=== PATIENT | female | born 1940 | race Caucasian/White ===

== ENCOUNTER 2016-10-19 09:07 | Emergency (ER) | payer MEDICARE, OTHER ==
[~2016-10-19] VITALS: Ht 154.9 cm; Wt 52.0 kg
[~2016-10-19 09:07] MED LIST: HYDR-2768 PO; LEVO.05 PO; LORA-474 PO; PERC10TA27 PO; POTA20IN3 PO
[2016-10-19 09:09] VITALS: BP 175/80; PULSE 85; RESP 18; TEMP 98.6; O2SAT 94
[2016-10-19] MEDS ORDERED: SODIUM CHLORIDE 0.9% FLUSH 10 ML FLUSH IVF PRN (09:30)
--- NOTE | 2016-10-19 09:34 | PD ---
HPI Chief Complaint: Fall Time Seen by Provider: 09:33 Travel History International Travel<30 days: No Contact w/Intl Traveler<30days: No Traveled to known affect area: No History of Present Illness HPI 75-year-old female with a chin with history of esophageal cancer currently on treatment with [facility] and gets follow-up locally with Dr. Graham, presents to the ER today because she states that she has been dizzy for the past week, and last night was on the couch, got up and got dizzy and she does not remember what happened but ended up on the floor. She has a abrasion over her right brow area. She states she had a loss of consciousness. She is also complaining of right shoulder pains. She denies any chest pains, shortness of breath, vomiting, or other symptoms. Modifying Factors: None Associated Signs & Symptoms: Dizziness, questionable syncope, right shoulder injury, head injury Risk Factors: Elderly, esophageal cancer PFSH Past Medical History Arthritis: Yes Anxiety: Yes Depression: Yes Chemotherapy: Yes (ESOPHAGEAL CA- LAST MONTH) Diminished Hearing: No GERD: Yes Hypertension: Yes Psychiatric: Yes ("MANIC-DEPRESSIVE") Thyroid Disease: Yes (LESION ON THYROID) Past Surgical History Cholecystectomy: Yes Endocrine Surgery: Yes (THYROID) Hysterectomy: Yes Social History Alcohol Use: Yes (SOCIAL DRINKER) Tobacco Use: Yes Substance Use: No Allergies-Medications (Allergen,Severity, Reaction): Coded Allergies: No Known Allergies (Unverified , 11/07/13) Reported Meds & Prescriptions Reported Meds & Active Scripts Active Potassium Chloride Er (Potassium Chloride) 20 Meq Tab 20 Meq PO BID 3 Days Reported Percocet 10/325 (Oxycodone/Acetaminophen) Oxycodone 10/325 Acetaminophen Tab 1 Tab PO Q6H Hctz (Hydrochlorothiazide) 25 Mg Tab 25 Mg PO DAILY Synthroid (Levothyroxine Sodium) 50 Mcg Tab 50 Mcg PO DAILY Ativan (Lorazepam) 1 Mg Tab 1 Mg PO QID Review of Systems Except as stated in HPI: all other systems reviewed are Neg Physical Exam Narrative GENERAL: Well-developed elderly white female patient currently in moderate distress. Awake and oriented 3. SKIN: Focused skin assessment warm/dry. HEAD: Small shallow 1 cm laceration over the right eyebrow. Normocephalic. EYES: Pupils equal and round. No scleral icterus. No injection or drainage. ENT: No nasal bleeding or discharge. Mucous membranes pink and moist. NECK: Trachea midline. No JVD. CARDIOVASCULAR: Regular rate and rhythm. No murmur appreciated. RESPIRATORY: No accessory muscle use. Clear to auscultation. Breath sounds equal bilaterally. GASTROINTESTINAL: Abdomen soft, non-tender, nondistended. Hepatic and splenic margins not palpable. MUSCULOSKELETAL: No obvious deformities. No clubbing. No cyanosis. No edema. EXTREMITIES: No clubbing, cyanosis, or edema. There is notable ecchymosis and tenderness over the palpation of the right shoulder area, proximal humeral area with no obvious deformities. NEUROLOGICAL: Awake and alert. No obvious cranial nerve deficits. Motor grossly within normal limits. Normal speech. Normal Romberg. PSYCHIATRIC: Appropriate mood and affect; insight and judgment normal. Data Data Last Documented VS Vital Signs Date Time Temp Pulse Resp B/P Pulse Ox O2 Delivery O2 Flow Rate FiO2 10/19/16 09:46 18 10/19/16 09:46 Room Air 10/19/16 09:09 98.6 85 175/80 94 Orders Electrocardiogram (10/19/16 09:24) Complete Blood Count With Diff (10/19/16 09:24) Comprehensive Metabolic Panel (10/19/16 09:24) Magnesium (Mg) (10/19/16:24) Ckmb (Isoenzyme) Profile (10/19/16:24) Troponin I (10/19/16 09:24) Act Partial Throm Time (Ptt) (10/19/16 09:24) Prothrombin Time / Inr (Pt) (10/19/16:24) Urinalysis - C+S If Indicated (10/19/16:24) Chest, Single Ap (10/19/16:24) Ct Brain W/O Iv Contrast(Rout) (10/19/16 09:24) Ecg Monitoring (10/19/16:24) Iv Access Insert/Monitor (10/19/16:24) Oximetry (10/19/16 09:24) Sodium Chloride 0.9% Flush (Ns Flush) (10/19/16 09:30) Humerus (Min 2vws) (10/19/16 09:57) Shoulder, Complete (>2vws) (10/19/16 09:57) Ct Cerv Spine W/O Contrast (10/19/16 10:22) Ct Facial Bones W/O Iv Cont (10/19/16 10:22) Acetamin-Hydrocod 325-5 Mg (Terry 5-325 (10/19/16 12:15) Labs Laboratory Tests Test 10/19/16 09:40 White Blood Count 6.9 TH/MM3 Red Blood Count 3.52 MIL/MM3 Hemoglobin 11.2 GM/DL Hematocrit 33.7 % Mean Corpuscular Volume 95.9 FL Mean Corpuscular Hemoglobin 31.9 PG Mean Corpuscular Hemoglobin 33.3 % Concent Red Cell Distribution Width 14.2 % Platelet Count 225 TH/MM3 Mean Platelet Volume 7.4 FL Neutrophils (%) (Auto) 76.9 % Lymphocytes (%) (Auto) 15.6 % Monocytes (%) (Auto) 6.2 % Eosinophils (%) (Auto) 0.9 % Basophils (%) (Auto) 0.4 % Neutrophils # (Auto) 5.3 TH/MM3 Lymphocytes # (Auto) 1.1 TH/MM3 Monocytes # (Auto) 0.4 TH/MM3 Eosinophils # (Auto) 0.1 TH/MM3 Basophils # (Auto) 0.0 TH/MM3 CBC Comment DIFF FINAL Differential Comment Prothrombin Time 10.4 SEC Prothromb Time International 0.9 RATIO Ratio Activated Partial 27.4 SEC Thromboplast Time Urine Color YELLOW Urine Turbidity CLEAR Urine pH 7.0 Urine Specific Beverly 1.011 Urine Protein NEG mg/dL Urine Glucose (UA) NEG mg/dL Urine Ketones NEG mg/dL Urine Occult Blood TRACE Urine Nitrite NEG Urine Bilirubin NEG Urine Urobilinogen LESS THAN 2.0 MG/DL Urine Leukocyte Esterase NEG Urine RBC 2 /hpf Urine WBC 1 /hpf Urine Squamous Epithelial <1 /hpf Cells Urine Bacteria RARE /hpf Urine Mucus FEW /lpf Microscopic Urinalysis Comment CULT NOT INDICATED Sodium Level 140 MEQ/L Potassium Level 4.4 MEQ/L Chloride Level 106 MEQ/L Carbon Dioxide Level 28.2 MEQ/L Anion Gap 6 MEQ/L Blood Urea Nitrogen 8 MG/DL Creatinine 0.58 MG/DL Estimat Glomerular Filtration 102 ML/MIN Rate Random Glucose 89 MG/DL Calcium Level 8.3 MG/DL Magnesium Level 1.9 MG/DL Total Bilirubin 0.3 MG/DL Aspartate Amino Transf 27 U/L (AST/SGOT) Alanine Aminotransferase 35 U/L (ALT/SGPT) Alkaline Phosphatase 83 U/L Total Creatine Kinase 89 U/L Troponin I LESS THAN 0.02 NG/ML Total Protein 7.1 GM/DL Albumin 3.2 GM/DL MDM Medical Decision Making Medical Screen Exam Complete: Yes Emergency Medical Condition: Yes Medical Record Reviewed: Yes Interpretation(s) EKG shows NSR, no ST elevation or depression, and no arrhythmias. No significant T-wave inversions. Laboratory Tests Test 10/19/16 09:40 Red Blood Count 3.52 MIL/MM3 (4.00-5.30) Hemoglobin 11.2 GM/DL (11.6-15.3) Hematocrit 33.7 % (35.0-46.0) Neutrophils (%) (Auto) 76.9 % (16.0-70.0) Urine Occult Blood TRACE (NEG) Urine Bacteria RARE /hpf (NONE) Urine Mucus FEW /lpf (OCC) Calcium Level 8.3 MG/DL (8.5-10.1) Troponin I LESS THAN 0.02 NG/ML (0.02-0.05) Albumin 3.2 GM/DL (3.4-5.0) Last [address] 10/19/16 1022 Signed Impressions: Service Date/Time: Wednesday, October 19, 2016 10:25 - CONCLUSION: 1. No acute bony fracture identified. Berry Bennett MD Shoulder X-Ray 10/19/16956 Signed Impressions: Service Date/Time: Wednesday, October 19, 2016 10:53 - CONCLUSION: Osteoarthritis without acute abnormality. Dirk Good Jr., MD Humerus X-Ray 10/19/16956 Signed Impressions: Service Date/Time: Wednesday, October 19, 2016 10:50 - CONCLUSION: Unremarkable examination of the right humerus. Dirk Good Jr., MD Head CT 10/19/16923 Signed Impressions: Service Date/Time: Wednesday, October 19, 2016 10:22 - CONCLUSION: 1. No acute intracranial abnormality identified. Berry Bennett MD Chest X-Ray 10/19/16923 Signed Impressions: Service Date/Time: Wednesday, October 19, 2016 09:31 - CONCLUSION: 1. COPD changes. Berry Bennett MD Differential Diagnosis Fall, questionable syncope, dizziness, right humeral injury, head injuryrule out acute intracranial bleed versus fractures versus dehydration versus metabolic issues Narrative Course CAT scans and x-rays did not reveal any signs of acute injuries. Lab work did not indicate significant dehydration or metabolic issues. Vital signs are stable in the ER. Patient has no significant focal neurological deficits. She is able to do a Romberg. At this point, I have talked her regarding her symptoms and I do suspect she will need further evaluation for this dizziness. Symptoms are more indicative of vertigo. I do not see any other focal symptoms. At this point, I have discussed admission for further inpatient evaluation of her dizziness but patient is declining stating that she would rather be home. My plan at this point would be to release her with close follow -up to primary care physician. Return for any worsening in symptoms as needed. The plan has discussed with her and she states understanding. Diagnosis Primary Impression: Dizziness Additional Impressions: Syncope Multiple contusions Med/Other Pt SpecificInfo: Prescription(s) given Scripts Meclizine 25 Mg Tab25 Mg PO DIRECTED PRN (VERTIGO) #20 TAB Ref 0 Prov:Jim Rosario MD 10/19/16 Disposition: 01 DISCHARGE HOME Condition: Stable Jim Rosario MD Oct 19, 2016 09:34
[2016-10-19 09:46] VITALS: RESP 18
--- NOTE | 2016-10-19 09:47 | RADRPT ---
EXAM DATE/TIME: 10/19/2016 09:31 [facility] COMPARISON: No previous studies available for comparison. INDICATIONS : Shortness of breath. MEDICAL HISTORY : Carcinoma, esophageal. SURGICAL HISTORY : Infusaport ENCOUNTER: Initial ACUITY: 1 day PAIN SCORE: 0/10 LOCATION: Bilateral chest FINDINGS: The Phugvz-d-Ohap in good position. The heart is mildly enlarged. The lungs demonstrate COPD changes. No suspicious lesions are identifie d. The osseous structures demonstrate degenerative changes within the shoulders bilaterally and rotatory scoliosis of the thoracic spine. CONCLUSION: 1. COPD changes. Berry Bennett MD on October 19, 2016 at 9:45 Board Certified Radiologist. This report was verified electronically.
[2016-10-19 10:08] LABS: AUTOMATED NEUTROPHIL # 5.3 TH/MM3 (1.8-7.7); BASOPHIL % 0.4 % (0.0-2.0); EOSINOPHIL # 0.1 TH/MM3 (0-0.4); EOSINOPHIL % 0.9 % (0.0-4.0); HEMATOCRIT 33.7 % (35.0-46.0); HEMO FLAGS DIFF FINAL; LYMPH % 15.6 % (9.0-44.0); LYMPHOCYTE # 1.1 TH/MM3 (1.0-4.8); MEAN CELL VOLUME 95.9 FL (80.0-100.0); MEAN CORPUSCULAR HEMOGLOBIN 31.9 PG (27.0-34.0); MEAN CORPUSCULAR HGB CONC 33.3 % (32.0-36.0); MONO % 6.2 % (0.0-8.0); NEUT % 76.9 % (16.0-70.0); PLATELET COUNT 225 TH/MM3 (150-450); RED BLOOD COUNT 3.52 MIL/MM3 (4.00-5.30); RED CELL DISTRIBUTION WIDTH 14.2 % (11.6-17.2); WHITE BLOOD COUNT 6.9 TH/MM3 (4.0-11.0)
[2016-10-19 10:12] LABS: BACTERIA, URINE RARE /hpf; BLOOD, URINE TRACE (NEG); COMMENT (UR) CULT NOT INDICATED; CULTURE IF INDICATED CULT NOT INDICATED; GLUCOSE,URINE NEG (NEG); KETONE, URINE NEG (NEG); MUCUS URINE FEW /lpf (OCC); NITRITE,URINE NEG (NEG); SQUAMOUS EPITHELIAL CELL URINE <1 /hpf (0-5); URINE COLOR YELLOW (YELLW/STRAW)
[2016-10-19 10:20] LABS: APTT (PATIENT) 27.4 SEC (24.3-30.1); INTERNATIONAL NORMALIZED RATIO 0.9 RATIO; PROTHROMBIN TIME - PATIENT 10.4 SEC (9.8-11.6)
[2016-10-19 10:27] LABS: ALT (GPT) 35 U/L (10-53); ANION GAP 6 MEQ/L (5-15); AST (GOT) 27 U/L (15-37); BICARBONATE 28.2 MEQ/L (21.0-32.0); BLOOD UREA NITROGEN 8 MG/DL (7-18); CHLORIDE 106 MEQ/L (98-107); GLOMERULAR FILTRATION RATE 102 ML/MIN (>89); MAGNESIUM 1.9 MG/DL (1.5-2.5); POTASSIUM 4.4 MEQ/L (3.5-5.1); SODIUM (NA) 140 MEQ/L (136-145)
[2016-10-19 10:31] LABS: ALKALINE PHOSPHATASE 83 U/L (45-117); TOTAL BILIRUBIN ADULT 0.3 MG/DL (0.2-1.0)
[2016-10-19 10:36] LABS: CREATINE KINASE 89 U/L (26-192)
--- NOTE | 2016-10-19 10:42 | RADRPT ---
EXAM DATE/TIME: 10/19/2016 10:22 [facility] COMPARISON: No previous studies available for comparison. INDICATIONS : Fall, hit right side of head. RADIATION DOSE: 56.35 CTDIvol (mGy) MEDICAL HISTORY : Hypertension. Carcinoma, esophageal. SURGICAL HISTORY : None. ENCOUNTER: Initial ACUITY: 1 day PAIN SCALE: 5/10 LOCATION: Right temporal TECHNIQUE: Multiple contiguous axial images were obtained of the head. Using automated exposure control and adj ustment of the mA and/or kV according to patient size, radiation dose was kept as low as reasonably a chievable to obtain optimal diagnostic quality images. FINDINGS: CEREBRUM: The ventricles are normal for age. No evidence of midline shift, mass lesion, hemorrhage or acute in farction. No extra-axial fluid collections are seen. POSTERIOR FOSSA: The cerebellum and brainstem are intact. The 4th ventricle is midline. The cerebellopontine angle i s unremarkable. EXTRACRANIAL: The visualized portion of the orbits is intact. SKULL: The calvaria is intact. No evidence of skull fracture. CONCLUSION: 1. No acute intracranial abnormality identified. Berry Bennett MD on October 19, 2016 at 10:36 Board Certified Radiologist. This report was verified electronically.
--- NOTE | 2016-10-19 11:13 | RADRPT ---
EXAM DATE/TIME: 10/19/2016 10:25 [facility] COMPARISON: CT BRAIN W/O CONTRAST, October 19, 2016, 10:22. INDICATIONS : Fall; hit right side of head. RADIATION DOSE: 36.82 CTDIvol (mGy) MEDICAL HISTORY : Carcinoma, esophageal. Hypertension. SURGICAL HISTORY : None. ENCOUNTER: Initial ACUITY: 1 day PAIN SCORE: 5/10 LOCATION: facial TECHNIQUE: Volumetric scanning of the facial bones was performed. Using automated exposure control and adjustme nt of the mA and/or kV according to patient size, radiation dose was kept as low as reasonably achiev able to obtain optimal diagnostic quality images. FINDINGS: ORBITS: The orbital and infraorbital osseous structures are intact. The retroconal structures have a normal configuration. No radiopaque foreign bodies are seen. NASAL BONE: The nasal bone and maxillary spine are intact ZYGOMATIC ARCHES: Symmetric without evidence of fracture. SINUSES: The maxillary, ethmoid and frontal sinuses are intact. No air-fluid levels seen. NASAL CAVITY: The nasal septum is intact and midline. The lacrimal ducts are intact. SOFT TISSUES: No radiopaque foreign bodies seen. There is a small amount of swelling and a small laceration ad jacent to the right orbit. INTRACRANIAL: No intracranial air seen. CRIBIFORM PLATE: Grossly intact. CONCLUSION: 1. No acute bony fracture identified. Berry Bennett MD on October 19, 2016 at 11:06 Board Certified Radiologist. This report was verified electronically.
--- NOTE | 2016-10-19 11:23 | RADRPT ---
EXAM DATE/TIME: 10/19/2016 10:50 [facility] COMPARISON: No previous studies available for comparison. INDICATIONS : Fall - right arm pain. MEDICAL HISTORY : Arthritis. SURGICAL HISTORY : None. ENCOUNTER: Initial ACUITY: 1 day PAIN SCORE: 10/10 LOCATION: Right proximal humerus FINDINGS: Two view examination of the right humerus demonstrates no evidence of fracture or dislocation. Bony mineralization is normal. The soft tissue structures are intact. CONCLUSION: Unremarkable examination of the right humerus. Dirk Good Jr., MD on October 19, 2016 at 11:13 Board Certified Radiologist. This report was verified electronically.
--- NOTE | 2016-10-19 11:24 | RADRPT ---
EXAM DATE/TIME: 10/19/2016 10:53 [facility] COMPARISON: No previous studies available for comparison. INDICATIONS : Fall - right shoulder pain. MEDICAL HISTORY : Arthritis. SURGICAL HISTORY : None. ENCOUNTER: Initial ACUITY: 1 day PAIN SCORE: 10/10 LOCATION: Right shoulder FINDINGS: 5 views of the right shoulder show joint space narrowing with mild osteophyte production. No fracture or dislocation. Acromioclavicular joint is unremarkable. Soft tissues are unremarkable. A port overl ies the right chest. CONCLUSION: Osteoarthritis without acute abnormality. Dirk Good Jr., MD on October 19, 2016 at 11:21 Board Certified Radiologist. This report was verified electronically.
--- NOTE | 2016-10-19 12:03 | RADRPT ---
EXAM DATE/TIME: 10/19/2016 10:21 [facility] COMPARISON: No previous studies available for comparison. INDICATIONS : Fall; hit right side of head. RADIATION DOSE: 17.11 CTDIvol (mGy) MEDICAL HISTORY : Carcinoma, esophageal. Hypertension. SURGICAL HISTORY : None. ENCOUNTER: Initial ACUITY: 1 day PAIN SCALE: 5/10 LOCATION: Right cranial TECHNIQUE: Volumetric scanning of the cervical spine was performed. Multiplanar reconstructions in the sagittal, coronal and oblique axial planes were performed. Using automated exposure control and adjustment o f the mA and/or kV according to patient size, radiation dose was kept as low as reasonably achievable to obtain optimal diagnostic quality images. FINDINGS: VERTEBRAE: Normal vertebral body height. ALIGNMENT: No evidence of subluxation. C2-C3: The bony spinal canal is normal in size. No evidence of disc bulge or herniation. The neural forami na are bilaterally patent. C3-C4: The bony spinal canal is normal in size. No evidence of disc bulge or herniation. Minimal bilateral neuroforamina encroachment is evident. C4-C5: The bony spinal canal is normal in size. No evidence of disc bulge or herniation. The neural forami na are bilaterally patent. C5-C6: The bony spinal canal is normal in size. No evidence of disc bulge or herniation. The neural forami na are bilaterally patent. C6-C7: The bony spinal canal is normal in size. No evidence of disc bulge or herniation. The neural forami na are bilaterally patent. C7-T1: The bony spinal canal is normal in size. No evidence of disc bulge or herniation. The neural forami na are bilaterally patent. CONCLUSION: Negative for fracture. Donald Bennett MD FACR on October 19, 2016 at 11:58 Board Certified Radiologist. This report was verified electronically.
[2016-10-19] MEDS ORDERED: ACETAMINOPHEN/HYDROcodone 325 MG/5 MG TAB PO ONE (12:15)
[2016-10-19] MEDS ORDERED: MECL-62 PO (12:23)
[2016-10-19 13:02] VITALS: BP 164/79
--- NOTE | 2016-10-19 14:36 | EKG ---
Date Performed: 10/19/2016 Time Performed: 09:30:20 PTAGE: 75 years EKG: Sinus rhythm NORMAL ECG NO PREVIOUS TRACING Compared to prior tracing no significant change DOCTOR: Derek Charles Interpretating Date/Time 10/19/2016 14:34:17
== END 2016-10-19 13:03 | disposition home or self-care (01) ==
LOC: NEPE 09:07
DX: R42 Dizziness and giddiness (principal); R55 Syncope and collapse; S00.11XA Contusion of right eyelid and periocular area, initial encounter; M25.511 Pain in right shoulder; I10 Essential (primary) hypertension; W01.198A Fall on same level from slipping, tripping and stumbling with subsequent striking against other object, initial encounter; Y93.01 Activity, walking, marching and hiking; Y92.008 Other place in unspecified non-institutional (private) residence as the place of occurrence of the external cause; Z72.0 Tobacco use
CPT/HCPCS: 70450; 70486; 71010; 72125; 73030; 73060; 80053; 81001; 82550; 83735; 84484; 85025; 85610; 85730; 93005; 99285